=== PATIENT | female | born 1950 | race Caucasian/White ===

== ENCOUNTER 2016-09-03 06:34 | Day surgery (SDC) | payer BC, OTHER ==
[2016-09-02 12:53] VITALS: BMI 29.9
--- NOTE | 2016-09-02 20:31 | HP ---
Past Medical History - Primary Care Physician PCP:: Jefferson Villarreal - Admission Chief Complaint: Postmenopausal bleeding History of Present Illness: 66 year old who had sudden onset of vaginal bleeding on 08/02/2016. She was evaluated in Urgent care where a pelvic ultrasound was performed revealing a normal sized uterus and an endometrium which measured .47 mm. Pap smear performed November 2015 was negative for malignancy. History of vulvar atrophy with Premarin vaginal cream not used for more than one year. History Source: Patient Limitations to Obtaining History: No Limitations - Past Medical History ...: 2 ...Para: 2 Psych: Yes: Anxiety (Sees Psychiatry), Depression Musculoskeletal: Yes: Chronic low back pain, Other (Degenerative change right knee) Endocrine: Yes: Hypothyroidism - Past Surgical History Hx Myomectomy: No Hx Transabdominal Cerclage: No Additional Surgical History: Bilateral oophorectomy and and October 2003 Benign Corpus luteum and Proliferative endometrium. Left breast aspiration April 2016. Hemithyroidectomy with removal of one parathyroid gland. Colonoscopy 2005. D and C 03/27/2001. D and C 02/27/2001. EGD September 2007 Gastritis 2001. Repair torn meniscus left knee - Smoking History Smoking history: Former smoker Have you smoked in the past 12 months: No Aproximately how many cigarettes per day: 0 If you are a former smoker, when did you quit?: 2012 - Alcohol/Substance Use Hx Alcohol Use: Yes (SOCIALLY) - Social History Usual Living Arrangement: Yes: With Spouse Home Medications - Allergies Allergies/Adverse Reactions: Allergies Allergy/AdvReac Type Severity Reaction Status Date / Time Penicillins Allergy Intermediate Verified 09/02/16 13:09 - Home Medications Home Medications: Ambulatory Orders Lamotrigine [LaMICtal -] 200 mg PO DAILY #0 tablet 07/03/11 Amphet Asp/Amphet/D-Amphet [Adderall 10 mg Tablet] 20 mg PO DAILY 09/27/12 Metformin HCl [Glucophage] 850 mg PO DAILY 09/27/12 Cholecalciferol (Vitamin D3) [D3-2000] 2,000 unit PO DAILY 09/02/16 Fluoxetine HCl [Prozac -] 10 mg PO BID 09/02/16 Glimepiride [Amaryl] 1 mg PO BID 09/02/16 Levothyroxine [Synthroid -] 150 mcg PO DAILY@0700 09/02/16 Rosuvastatin Calcium [Crestor] 40 mg PO HS 09/02/16 Family Disease History - Family Disease History Family Disease History: Heart Disease: Father (CVA), Other: Mother (Dementia), Daughter (Thrombocytosis) Other Family History: 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, colon or punch machine operator history Review of Systems - Review of Systems Constitutional: reports: No Symptoms Neck: reports: No Symptoms Cardiovascular: reports: No Symptoms Respiratory: reports: No Symptoms Gastrointestinal: reports: No Symptoms Genitourinary: reports: No Symptoms Breasts: reports: No Symptoms Reported Musculoskeletal: reports: Back Pain, Joint Pain Psychiatric: reports: Anxiety 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 Constitutional: Yes: Well Nourished, No Distress, Calm Neck: Yes: Supple, Trachea Midline Cardiovascular: Yes: WNL, Regular Rate and Rhythm Respiratory: Yes: WNL, CTA Bilaterally Gastrointestinal: Yes: WNL, Soft ...Rectal Exam: Yes: WNL Pelvis: Yes: WNL External Genitalia: Yes: Other (Bilateral vulvar atrophy with erythema, no bleeding, no lesions or ulcerations) Uterus: Yes: Normal, Freely Moveable, Anteverted, Firm Adnexa: Not Palpable: Bilateral (Removed surgically) Breast(s): Yes: WNL Musculoskeletal: Yes: WNL Extremities: Yes: WNL Edema: No Neurological: Yes: WNL Psychiatric: Yes: WNL, Alert, Oriented Imaging - Results Other: Other (Pelvic ultrasoiund: Uterus 5 by by 2 cm, anteverted with endometrium 4.7 mm.) Assessment/Plan Impression: Postmenopausal Bleeding Diabetes Hypothyroidism Hypertension Plan: D and C with Hysteroscopy 09/03/2016
[2016-09-03] MEDS ORDERED: DESFLURANE GAS 240 ML BOTTLE IH ONE (06:58)
[2016-09-03] MEDS ORDERED: LIDOCAINE HCL 1%, 10 MG/ML (20ML VIAL) ONE (06:58)
[2016-09-03] MEDS ORDERED: PROPOFOL 20 ML ONE ×2 (07:14)
[2016-09-03] MEDS ORDERED: ePHEDrine SULFATE 50 MG/1 ML AMPULE ONE (07:14)
[2016-09-03] MEDS ORDERED: SUCCINYLCHOLINE CHLORIDE 200 MG/10 ML VIAL ONE ×3 (07:14→07:16)
[2016-09-03] MEDS ORDERED: MIDAZOLAM HCL 2 MG/2 ML SINGLE DOSE VIAL ONE (07:50)
--- NOTE | 2016-09-03 08:07 | HP ---
History & Physical Update - Physical Physical: No Change - Assessment Assessment: No Change - Plan Plan: No Change (There has been no further vaginal bleeding. Vulva improved with Lotrisone.)
[2016-09-03] MEDS ORDERED: LIDOCAINE HCL/PF 2% SDV 5ML VIAL ONE (08:11)
[2016-09-03] MEDS ORDERED: ONDANSETRON 4 MG/2 ML VIAL ONE (08:28)
[2016-09-03] MEDS ORDERED: PROMETHAZINE HCL 25 MG/1 ML VIAL IVPUSH PRN (08:49)
[2016-09-03] MEDS ORDERED: ONDANSETRON 4 MG/2 ML VIAL IVPUSH PRN (08:49)
[2016-09-03] MEDS ORDERED: IBUPROFEN 400 MG TABLET (FP) PO PRN (08:53)
[2016-09-03] MEDS ORDERED: ACETAMINOPHEN 325 MG TABLET (FP) PO PRN (08:53)
[2016-09-03] MEDS ORDERED: LACTATED RINGERS SOLUTION 1,000 ML IV SCH (09:00)
[2016-09-03 09:46] VITALS: TEMP 97.9
[2016-09-03 11:30] VITALS: BP 128/65; PULSE 61
--- NOTE | 2016-09-03 20:49 | OP ---
DATE OF OPERATION: 09/03/2016 PREOPERATIVE DIAGNOSES: Postmenopausal bleeding, vulvar atrophy. POSTOPERATIVE DIAGNOSES: Postmenopausal bleeding, vulvar atrophy. OPERATION: Dilatation and curettage, hysteroscopy. SURGEON: Barrington Lomeli MD ANESTHESIA: General, Dr. Islas. BLOOD LOSS: 5 mL SPECIMEN: Endometrial curettings. DESCRIPTION OF PROCEDURE: Under general anesthesia, the patient was placed in the dorsal lithotomy position, prepped and draped in the usual sterile manner. A pelvic examination was performed revealing a uterus that was anterior, mobile, not enlarged. The vulva was noted to be markedly thinned out but there was no erythema, no ulcerations, no lesions. A weighted speculum was inserted in the vagina. The anterior lip of the cervix grasped with a sharp-tooth tenaculum. The uterus was gradually dilated and then sounded to approximately 5 cm. With a 5-mm hysteroscope with saline as the distending media, the uterine cavity was visualized in its entirety. Both ostia were visualized. The uterine cavity was smooth and symmetrical, with no evidence of any polyps, fibroids, or proliferative-type tissue. These findings were noted. The hysteroscope was then removed. The cervix was further dilated. Curettage was performed to obtain tissue for diagnosis. The patient tolerated the procedure well and was brought to the recovery room in satisfactory condition. Lenin [id number]
--- NOTE | 2016-09-04 16:51 | PATH ---
Surgical Pathology Report Patient Name: KELIN RODRIGUEZ [facility]. Rec. #: [id number] /Age/Gender: 1950 (Age: 66) / F Account: [id number] Location: [facility] SURGICAL Taken: 09/03/2016 Received: 09/03/2016 Reported: 09/04/2016 Physicians: Barrington Lomeli M.D. Specimen(s) Received ENDOMETRIAL CURETTINGS Clinical History Postmenopausal bleeding, 66-year-old Ultrasound-4 mm endometrium Bilateral corpus luteum, pelvic pain Final Diagnosis ENDOMETRIUM, CURETTING: SCANT INACTIVE ENDOMETRIUM, BENIGN SQUAMOUS EPITHELIUM, BENIGN ENDOCERVICAL EPITHELIUM, AND MYOMETRIAL TISSUE. NO ENDOMETRIAL HYPERPLASIA OR CARCINOMA IDENTIFIED. Comment: Recommend correlation with clinical findings and follow up as clinically indicated. Electronically Signed Gustabo Fairbanks M.D. Gross Description Received in formalin labeled "endometrial curettings," is a 2.0 x 1.3 x 0.3 cm aggregate of blanco red soft tissue fragments. The formalin is filtered and the specimen is entirely submitted in one cassette. /09/03/2016 [facility]09/03/2016
== END 2016-09-03 11:30 | disposition home or self-care (01) ==
LOC: JASU-SURG 06:34
PROVIDERS: ATTEND Obstetrics & Gynecology
PROC: 0UDB8ZX Extraction of Endometrium, Via Natural or Artificial Opening Endoscopic, Diagnostic (ICD-10-PCS; principal; 2016-09-03 08:00)
DX: N95.0 Postmenopausal bleeding (principal); N90.5 Atrophy of vulva
CPT/HCPCS: 88305-TC; 94760